=== PATIENT | female | born 1995 | race Caucasian/White ===

== ENCOUNTER 2024-11-28 18:48 | Emergency (ER) | payer SELFPAY ==
[2024-11-28] VITALS (7 sets, daily range): BP systolic 131–147; BP diastolic 79–95; PULSE 88–135; RESP 14–18; TEMP 37–37.2; O2SAT 100; BMI 36.5
--- NOTE | 2024-11-28 19:06 | PC.NURSE ---
Pt filling out animal bite form
--- NOTE | 2024-11-28 20:30 | XR_ITS ---
PROCEDURE INFORMATION: Exam: XR Right Forearm Trauma Exam date and time: 11/28/2024 8:42 PM Age: 29 years old Clinical indication: Injury or trauma; Other: Dog bite, eval for foreign body; Arm, lower; Right TECHNIQUE: Imaging protocol: Radiologic exam of the right forearm. Views: 2 views. Trauma. COMPARISON: No relevant prior studies available. FINDINGS: Bones/joints: Normal. No acute fracture. No dislocation. Soft tissues: Gas in the deep subcutaneous soft tissues of the medial forearm. No radiopaque foreign body. IMPRESSION: 1. Gas in the deep subcutaneous soft tissues of the medial forearm. Compatible with penetrating trauma. 2. No radiopaque foreign body.
[2024-11-28] MEDS: MORPHINE 4MG/ML SYRINGE 4 MG IV (20:49)
[2024-11-28] MEDS: ONDANSETRON 4MG/2ML VIAL 4 MG IV ×2 (20:49→22:57)
[2024-11-28] MEDS: TET/DIPHTH/PERT-ADULT 0.5ML SYRINGE 0.5 ML IM (20:53)
[2024-11-28] MEDS: RABIES IMMUNE GLOBULIN/PF 300 UNIT/ML 5ML VIAL 2100 UNIT IM (20:58)
--- NOTE | 2024-11-28 21:08 | ED_ITS ---
Discharge Plan Disposition Patient Disposition: Home, Self-Care Condition: Good Prescriptions Prescriptions: New amoxicillin-pot clavulanate 875-125 mg tablet 1 tab PO BID Qty: 14 0RF fluconazole 150 mg tablet 150 mg PO ONCE Qty: 1 0RF oxycodone 5 mg tablet 5 mg PO Q8H PRN (Reason: pain) Qty: 12 0RF Referrals Follow up/Referrals: Provider,Referral, MD [Primary Care Provider, Medical] - See instructions Activity Restrictions/Add. Instructions Additional Instructions/Restrictions: Please monitor your wound for pus drainage and streaking redness, as well as for fevers. If you develop significant swelling fo the forearm along with significant difficulty with closing the hand please also return. Otherwise, I want you to take Augmentin twice daily for the next 7 days, and you can take one tablet of fluconazole in 2-3 days to prevent yeast infection. Additionally, you will need to return to our ER, another ER, or your public health department for subsequent rabies vacinations on the following dates: December 01, December 05, and December 12. Clinical Impressions Clinical Impression: Rabies exposure Dog bite Qualifiers: Encounter type: initial encounter Qualified Code(s): W54.0XXA - Bitten by dog, initial encounter Forearm laceration Qualifiers: Encounter type: initial encounter Laterality: right Qualified Code(s): S51.811A - Laceration without foreign body of right forearm, initial encounter Instructions Patient Instructions: Animal Bites Print Language Print Language: [place] Discharge ED Provider: Román Espinoza Adult HPI General Chief complaint: Animal Bite Stated complaint: Animal bite Time Seen by Provider: 11/28/24 20:20 Mode of Arrival: Ambulatory Source of Information: Patient Description of Symptoms (Recalled from ER Triage Doc. by RN): Pt presents for evaluation of a dog bite to posterior right forearm, scratches to right thigh, small laceration to right thigh. Pt states the dog belongs to ex [id number]'s dog , unknown if dog was UTD on shots. History of Present Illness HPI narrative: This is a 29-year-old female patient who is presenting to the emergency department today for evaluation of a dog bite. Patient states that a family members non-domesticated pitbull attacked her this evening. She states that that she suffered scratch wounds to her right thigh as well as multiple bite wounds to the right upper extremity. On arrival to the emergency department her wounds were hemostatic. She was experiencing intense pain. She denies sensory deficits and motor deficits of the hand Related Data Previous Rx's ?Medication ?Instructions ?Recorded amoxicillin 875 mg-potassium 1 tab PO BID #14 tabs 10/15 clavulanate 125 mg tablet fluconazole 150 mg tablet 150 mg PO ONCE #1 tab oxycodone 5 mg tablet 5 mg PO Q8H PRN pain #12 tab s 11/28/24 Allergies Allergy/AdvReac Type Severity Reaction Status Date / Time No Known Allergies Allergy Verified 11/28/24 19:06 [facility] Disclaimer: The information contained in this section may have been updated after the patient was seen, as this information can be updated by other users. Social History Smoking Status: Current every day smoker alcohol intake: former current occupational status: unemployed Travel in the last 8 weeks?: None ROS Obtained: Yes Systems reviewed as appropriate & no additional complaints except as documented Physical Exam General General appearance: other (See MDM) Respiratory Respiratory exam: Present other (See MDM) Cardiovascular Cardiovascular exam: Present other (See MDM) Neurological Exam Neurological exam: Present other (See MDM) Medical Decision Making Medical Records Medical records reviewed: Yes I reviewed the patient's medical records. Screening: Per USPSTF and CDC recommendations, given the prevalence of disease in our region, it is our hospital?s policy to screen for HIV and viral Hepatitis for all patients aged 18 and over and those with ongoing risk factors. Cameron Inquiry Pt receiving controlled substance: Yes Cameron was queried for this patient: Yes Risks and benefits of using a controlled substance: were discussed with pt by me Vital Signs: 11/28/24 18:48 11/28/24 20:24 11/28/24 21:00 Temperature 98.6 F Temperature Source Temporal Artery Scan Pulse Rate 135 H Pulse Rate [Right] 133 H Respiratory Rate 18 Blood Pressure 143/93 H 132/93 H Blood Pressure [Right Arm] 147/95 H Blood Pressure Mean 106 Blood Pressure Mean [Right Arm] 112 Blood Pressure Source [Right Arm] Automatic Cuff Blood Pressure Position [Right Arm] Sitting 02 Sat by Pulse Oximetry 100 100 Oxygen Delivery Method Room Air 11/28/24 21:30 11/28/24 22:00 Temperature Temperature Source Pulse Rate Pulse Rate [Right] Respiratory Rate Blood Pressure 135/83 131/89 Blood Pressure [Right Arm] Blood Pressure Mean 100 102 Blood Pressure Mean [Right Arm] Blood Pressure Source [Right Arm] Blood Pressure Position [Right Arm] 02 Sat by Pulse Oximetry Oxygen Delivery Method Orders (Tests/Meds): ED MEDICATIONS Discontinued Medications Generic Name Dose Route Start Last Admin Trade Name Richard PRN Reason Stop Dose Admin Ampicillin Sodium/Sulbactam 100 mls @ 200 mls/hr 11/28/24 20:30 11/28/24 22:14 Sodium 3 gm/ Sodium Chloride IV 11/28/24 20:31 Infused ONCE ONE Infusion Lidocaine HCl 10 ml 11/28/24 21:05 11/28/24 21:29 Lidocaine 1% 10ml Mdv SUBCUT 11/28/24 21:06 10 ml ONCE ONE Administration Morphine Sulfate 4 mg 11/28/24 20:30 11/28/24 20:49 Morphine 4mg/Ml Syringe IV 11/28/24 20:31 4 mg ONCE ONE Administration Ondansetron HCl 4 mg 11/28/24 20:30 11/28/24 20:49 Ondansetron 4mg/2ml Vial IV 11/28/24 20:31 4 mg ONCE ONE Administration Rabies Immune Globulin 2,100 unit 11/28/24 20:30 11/28/24 20:58 Rabies Immune Globulin/Pf 300 Unit/Ml 5ml Vial IM 11/28/24 20:31 2,100 unit ONCE ONE Administration Rabies Vaccine 2.5 unit 11/28/24 20:30 11/28/24 21:33 Rabies Vaccine (Pcec)/Pf 2.5 Unit Vial IM 11/28/24 20:31 2.5 unit .ONCE ONE Administration Tetanus/Reduced Diphtheria/Acell Pertussis 0.5 ml 11/28/24 20:30 11/28/24 20:53 Tet/Diphth/Pert-Adult 0.5ml Syringe IM 11/28/24 20:31 0.5 ml .ONCE ONE Administration ORDERS Category Date Time Status Forearm XR right 2 views [XR forearm RT 2V] Stat Exams 11/28/24 20:30 Completed Medical Decision Narrative: In summary, this is a 29-year-old female patient who is presenting to the emergency department today for evaluation of multiple dog bites. The patient does not have any significant comorbidities that may complicate her medical management or care On initial evaluation of the patient was in acute painful distress but was nontoxic in appearance. They are hemodynamically stable, saturating well room air, and are neurologically intact. On physical examination the patient has multiple scratch wounds to the right thigh. She has a large 5 cm laceration to the volar aspect of the right forearm and a gaping puncture wound just inferior to this laceration. There are also 2 puncture wounds to the dorsal aspect of the right forearm as well. These are less gaping. She has intact abduction, adduction, and opposition of the right thumb. Pincer director of content and programming of the thumb and index finger is intact. She is able to adduct and abduct all remaining fingers against resistance. She has normal sensation in all terminal nerve distributions of the right hand. She has no oth er signs of external trauma to her body The patient tells me on further history that the dog that bit her is not domesticated and has not received its shots. She is concerned that she could have been exposed to rabies and would like to have a rabies vaccination. Additionally, she has not received her Tdap in several years so we will administer a Tdap vaccination here today. Differential diagnosis includes laceration from dog bite, puncture wound from dog bite, retained foreign body, rabies exposure, among others Workup was initiated with an x-ray of the right forearm to assess for retained foreign body and fracture. On my independent interpretation of this x-ray there is no retained foreign body. Official radiology read is in agreement We administered 3 g of IV Unasyn to the patient while she was here in the emergency department. We also treated pain with 4 mg of morphine and treated her prophylactically for nausea with 4 mg of Zofran. We have administered the rabies immunoglobulin and the rabies vaccination to the patient as well as the Tdap vaccination I have thoroughly cleaned all of the patient's wounds with 1 L of saline and I have thoroughly irrigated and manually probed her wounds with chlorhexidine. I used 1% lidocaine to anesthetize the wounds on the volar aspect of her right forearm and used 3-0 nylon sutures to loosely approximate these lesions. I have informed the patient that she will likely have significant scarring of this region and we have discussed the importance of leaving these wounds open and allowing them to drain and access air to prevent infection. I have prescribed her 5 mg of oxycodone for pain and we will have her take Augmentin twice daily for the next 7 days for prevention of infection. She has requested that I prescribe fluconazole as she typically develops yeast infections with the use of antibiotics. We will provide her with a prescription for fluconazole as well to take in 2 to 3 days from now to prevent this. I have given her strict return precautions in the event that she experiences streaking erythema, purulent drainage, fevers, and significant swelling of the forearm with loss of range of motion of the right hand. I have also informed the patient that she must return on days 3, 7, and 14 for subsequent rabies vaccinations. She acknowledges understanding. At this time all questions have been answered and all parties are agreeable with the decision to discharge home Procedures Laceration Laceration 1: Site: upper extremity Side (If applicable): right Size (cm): 5 Description: other (Semicircular shape) Depth: simple, single layer and involves subcutaneous layer Local Anesthetic: lidocaine 1% Amount of anesthesia used (mL): 6 Pre-repair: wound explored, irrigated extensively and deep structures intact Skin layer closed with: nylon Size (cm): 4-0 Number of sutures: 4 Technique: simple, interrupted (Loosely approximated) Laceration 2: Site: upper extremity Side (If applicable): right Size (cm): 2 Description: linear Depth: simple, single layer Local Anesthetic: lidocaine 1% Amount of anesthesia used (mL): 1 Pre-repair: wound explored, irrigated extensively and deep structures intact Skin layer closed with: nylon Size (cm): 3-0 Number of sutures: 1 Technique: simple, interrupted (Loosely approximate) Critical Care Critical Care Time Critical Care Time: No
[2024-11-28] MEDS: LIDOCAINE 1% 10ML MDV 10 ML SUBCUT (21:29)
[2024-11-28] MEDS: AMPICILLIN/SULBACTAM 3 GM in 0.9 % SODIUM CHLORIDE 100 ML IV (21:30)
[2024-11-28] MEDS: RABIES VACCINE (PCEC)/PF 2.5 UNIT VIAL IM (21:33)
--- NOTE | 2024-11-28 22:44 | PC.NURSE ---
wound care given to wounds to the back of right forearm. Cleaned and wrapped with non stick dressing.
== END 2024-11-28 23:00 | disposition home or self-care (01) ==
PROVIDERS: Emergency Provider Student in an Organized Health Care Education/Training Program
DX: S51.851A Open bite of right forearm, initial encounter (principal); S70.311A Abrasion, right thigh, initial encounter; W54.0XXA Bitten by dog, initial encounter
CPT/HCPCS: 12002; 73090; 90375; 90471; 90472; 90675; 90715; 96372; 96374; 96375; 99284; 99285; J0295; J2003; J2270; J2405